=== PATIENT | male | born 1960 | race Caucasian/White ===

== ENCOUNTER → 2017-12-20 | Outpatient (CLI) | payer MEDICARE, MEDICAID ==
[~2017-12-20] MED LIST: GADOBUTROL 1 MMOL/ML 10 ML VIAL IVP ONE
== END | disposition home or self-care (01) ==
LOC: RADMN 09:42
PROVIDERS: ATTEND Legal Medicine
DX: G35 Multiple sclerosis (principal)
CPT/HCPCS: 70553; A9585